=== PATIENT | female | born 1955 | race African-American/Black ===

== ENCOUNTER 2019-04-10 15:01 | Emergency (ER) | payer SELFPAY ==
[~2019-04-10] VITALS: Ht 165.1 cm; Wt 65.0 kg
[2019-04-10 15:05] VITALS: BP 164/80
== END 2019-04-10 16:02 | disposition left against medical advice (07) ==
LOC: EDBD → ER 15:01
DX: Z53.21 Procedure and treatment not carried out due to patient leaving prior to being seen by health care provider (principal)

== ENCOUNTER 2019-04-10 17:10 | Inpatient (IN) | payer MEDICAID ==
[~2019-04-10] VITALS: Ht 163 cm; Wt 55.8 kg
[2019-04-10] MEDS ORDERED: ASPIRIN 81MG TABLET PO ONE (18:30)
[2019-04-10 19:19] LABS: BASOPHILS % 0.4 % (0.0-2.0); HEMATOCRIT. 43.7 % (36.0-48.0); LYMPHOCYTES % 9.1 % (20.0-50.0); MEAN CORPUSCULAR HEMOGLOBIN 30.7 pg (28.0-32.0); MEAN CORPUSCULAR VOLUME 89.7 fL (81.0-99.0); MONOCYTES % 6.8 % (2.0-8.0); NEUTROPHILS % 83.7 % (40.0-76.0); PLATELET 578 x1000/uL (130-400); RED BLOOD CELL COUNT 4.87 mill/uL (4.2-5.4); RED CELL DISTRIBUTION WIDTH 13.6 % (11.6-14.6)
[2019-04-10 19:25] LABS: CHLORIDE 97 mEq/L (98-107)
[2019-04-10 19:31] LABS: ETHANOL BLOOD < 10 mg/dL
[2019-04-11] MEDS ORDERED: LORAZEPAM 2MG/ML CPJ IM SCH (00:15)
[2019-04-11 01:23] LABS: CLARITY URINE CLEAR (CLEAR); COLOR URINE YELLOW (YELLOW); KETONES URINE TRACE (NEGATIVE); LEUKOCYTE ESTERASE URINE NEGATIVE (NEGATIVE); NITRITE URINE NEGATIVE (NEGATIVE); OCCULT BLOOD URINE NEGATIVE (NEGATIVE); PH URINE 5.5 (4.5-8.0); PROTEIN URINE 1+ (NEGATIVE); SPECIFIC GRAVITY URINE 1.018 (1.005-1.030)
[2019-04-11 01:46] LABS: *BARBITURATES SCREEN URINE NEGATIVE (NEGATIVE); *COCAINE SCREEN URINE PRESUMTIVE POSITIVE (NEGATIVE); CANNABINOID URINE SCREEN NEGATIVE (NEGATIVE); METHADONE URINE SCREEN NEGATIVE (NEGATIVE); OPIATES URINE SCREEN NEGATIVE (NEGATIVE); PHENCYCLIDINE URINE SCREEN NEGATIVE (NEGATIVE)
[2019-04-11 01:47] LABS: *AMPHETAMINES SCREEN URINE PRESUMTIVE POSITIVE (NEGATIVE); *BENZODIAZEPINES SCREEN URINE NEGATIVE (NEGATIVE)
[2019-04-11] MEDS ORDERED: DOCUSATE SODIUM 100MG CAPSULE PO PRN (05:00)
[2019-04-11] MEDS ORDERED: ONDANSETRON HCL 4MG/2ML INJ IV PRN (05:00)
[2019-04-11] MEDS ORDERED: ACETAMINOPHEN 325MG TABLET PO PRN (05:00)
[2019-04-11] MEDS ORDERED: MAGNESIUM/ALUMINUM HYDROXIDE/SIMETHICONE 30ML UDC PO PRN (05:00)
[2019-04-11] MEDS ORDERED: CLONIDINE 0.1MG TABLET PO PRN (05:00)
[2019-04-11 09:00] VITALS: BP 133/64
[2019-04-11 10:52] VITALS: BP 133/64
[2019-04-11 12:00] VITALS: BP 123/81
[2019-04-11 16:00] VITALS: BP 120/80
[2019-04-11] MEDS: LORAZEPAM 2MG/ML CPJ IV PRN (16:19)
[2019-04-11] MEDS: SODIUM CHLORIDE 0.45% 1,000 ML IV SCH (17:37)
[2019-04-11] MEDS ORDERED: POTASSIUM CHLORIDE 20MEQ TABLET SR PO NR (17:45)
[2019-04-11 20:00] VITALS: BP 117/73
[2019-04-12] VITALS: BP 115/74
[2019-04-12 04:00] VITALS: BP 102/72
[2019-04-12 05:38] LABS: CHLORIDE 99 mEq/L (98-107)
[2019-04-12 05:51] LABS: LDL CHOLESTEROL 95 mg/dL (5-100)
[2019-04-12 05:52] LABS: HDL CHOLESTEROL 69 mg/dL (40-59)
[2019-04-12 06:15] LABS: BASOPHILS % 0.6 % (0.0-2.0); HEMATOCRIT. 35.7 % (36.0-48.0); HEMOGLOBIN. 12.1 g/dL (12.0-16.0); LYMPHOCYTES % 31.7 % (20.0-50.0); MEAN CORPUSCULAR HEMOGLOBIN 30.9 pg (28.0-32.0); MEAN PLATELET VOLUME 7.3 fl (7.4-10.4); MONOCYTES % 9.8 % (2.0-8.0); NEUTROPHILS % 56.9 % (40.0-76.0); PLATELET 464 x1000/uL (130-400); RED BLOOD CELL COUNT 3.93 mill/uL (4.2-5.4); RED CELL DISTRIBUTION WIDTH 13.7 % (11.6-14.6)
[2019-04-12] MEDS: SODIUM CHLORIDE 0.45% 1,000 ML IV SCH (07:53)
[2019-04-12 08:00] VITALS: BP 106/60
[2019-04-12 12:00] VITALS: BP 109/58
[2019-04-12] MEDS: LORAZEPAM 2MG/ML CPJ IV PRN (13:50)
[2019-04-12 16:00] VITALS: BP 110/63
[2019-04-12 20:00] VITALS: BP 121/41
[2019-04-13 00:01] VITALS: BP 102/59
[2019-04-13] MEDS: SODIUM CHLORIDE 0.45% 1,000 ML IV SCH ×3 (00:16→22:27)
[2019-04-13 04:00] VITALS: BP 144/74
[2019-04-13 08:00] VITALS: BP 128/67
[2019-04-13 12:00] VITALS: BP 125/64
[2019-04-13 16:00] VITALS: BP 139/73
[2019-04-13] MEDS: LORAZEPAM 2MG/ML CPJ IV PRN (18:16)
[2019-04-13 20:00] VITALS: BP 140/74
[2019-04-14] VITALS: BP 139/78
[2019-04-14 04:00] VITALS: BP 135/80
[2019-04-14 08:00] VITALS: BP 139/77
[2019-04-14 12:00] VITALS: BP 130/79
[2019-04-14] MEDS ORDERED: LORAZEPAM 2MG/ML CPJ IM NR (13:35)
[2019-04-14 14:56] VITALS: BP 130/79
[2019-04-14 16:00] VITALS: BP 104/53
== END 2019-04-14 19:15 | DRG 469 ==
LOC: EDBD 17:10 → ER 17:10 → 8WST 04-11 00:52 → ENRESERV 04-11 07:29
PROVIDERS: ADMIT Hospitalist; ATTEND Hospitalist
DX: N17.9 Acute kidney failure, unspecified (principal); R45.851 Suicidal ideations; Z78.1 Physical restraint status; F23 Brief psychotic disorder; Z59.0 Homelessness; F19.10 Other psychoactive substance abuse, uncomplicated; Z85.3 Personal history of malignant neoplasm of breast; E87.6 Hypokalemia; F17.200 Nicotine dependence, unspecified, uncomplicated; J44.9 Chronic obstructive pulmonary disease, unspecified; Z90.10 Acquired absence of unspecified breast and nipple; Z71.6 Tobacco abuse counseling
CPT/HCPCS: 36415; 71045; 80061; 80305; 80307; 80320; 80329; 81003; 84484; 93005; 99285; C1893; J2060; G0480